=== PATIENT | male | born 1985 | race Caucasian/White ===

== ENCOUNTER 2016-09-28 12:30 | Inpatient (IN) | payer OTHER ==
--- NOTE | ~2016-09-28 | DS ---
Discharge Summary [address] [place]. [address] NAME: DARCY FUNES : 89 STATUS : ADM IN LOCATED WITHIN [facility]#: [id number] AGE: 31 ADM/REG DATE : 09/28/16 MR#: [id number] REPORT SERV DATE: 10/01/16 DICTATED BY: PB JENKINS DATE: 09/30/16 REPORT STATUS : Draft TRANSCRIBED BY: MODL DATE: 09/30/16 ADMISSION DATE: 09/28/2016 DISCHARGE DATE: 09/30/2016 DISCHARGE DIAGNOSES: 1. Schizoaffective disorder. 2. Mild gastritis, resolved. HOSPITAL COURSE: The patient was admitted to the ER on 09/28/2016, had a psychotic break, required intubation and mechanical ventilation, and sedation for control. He is weaned off the ventilator on 09/30/2016. He was seen by Psychiatry, who continued on Haldol and Ativan. Schizoaffective disorder, diagnosed bipolar disease, opioid dependence, and borderline mental retardation. The patient has had a previous brain injury. CT scan revealed no acute issues. His electrolyte and vital signs were stable today. Sodium 146, potassium 3.6, chloride 113, CO2 of 22, BUN 7, creatinine 0.44, H and H of 11.3 and 32.7, white count 7900. PLAN: Transfer to [facility] for further treatment. JEET/REGGIE Pb Jenkins M.D. / [id number] CC: Pb Jenkins M.D.
--- NOTE | ~2016-09-28 | HP ---
History And Physical [address] [address] NAME: DARCY FUNES : 89 STATUS : ADM IN [facility]#: [id number] AGE: 31 ADM/REG DATE : 09/28/16 MR#: [id number] REPORT SERV DATE: 09/29/16 DICTATED BY: PB JENKINS DATE: 09/28/16 REPORT STATUS : Draft TRANSCRIBED BY: MODL DATE: 09/28/16 DATE OF ADMISSION: 09/28/2016 TIME: 2146 hours. LOCATION: Seen at ER bed #4. HISTORY OF PRESENT ILLNESS: A 31-year-old white male recently discharged from [facility] 2 days ago after being undergoing weaning off methadone for a previous opioid habit. He was home for about a day and a half to two days his father reports when he began to have paranoid ideation, felt that people were chasing him, became more and more agitated, and was brought to the ER where he had what I think is a total psychotic break. He required intubation and paralysis by the ER physician along with sedation. This was after a number of different agents had been tried to help him prior to that. According to his family's history, in , he had similar overdoses with anoxic brain injury documented at that time. As a child he had a head injury at the age 2-1/2. PAST MEDICAL HISTORY: Significant for usual childhood diseases, history of the accident as noted above, history of anoxic injury as noted above. No operations in the past. Significant opioid addiction in the past. REVIEW OF SYSTEMS: GI: Negative. : Negative. CARDIAC: Negative. MUSCULOSKELETAL: Negative. NEUROLOGIC: Noted. ENDOCRINE: Negative. ALLERGIES: NO KNOWN ALLERGIES. MEDICATIONS: No medicines other than methadone. PHYSICAL EXAMINATION: VITAL SIGNS: On examination, his blood pressure is about 132/88, pulse 101 to 120, respirations 22, and temperature 98.3. HEENT: Head is normocephalic. Sclerae and conjunctivae clear. NECK: Supple. CHEST: Clear to auscultation and percussion. No wheezing or rhonchi. CARDIAC: S1 and S2. No murmurs or gallops. ABDOMEN: Soft and nontender. No masses or organomegaly. EXTREMITIES: No clubbing, cyanosis, or edema. Pulses palpable. A number of tattoos, especially above the groin and shoulder. NEUROLOGIC: Pupils appear to be equal and reactive. LABORATORY DATA: Shows the following: Sodium 141, potassium 3.0, chloride 107, CO2 of 25, BUN 13, creatinine 1.0, glucose 122, calcium 9.3, total protein 8.4, albumin 4.7, total bilirubin 0.7, alkaline phosphatase 96, ALT 38, AST 10 troponin less than 0.02. CPK is pending. Acetaminophen less than 2. Salicylate less than 1.7. Alcohol less than 10. CBC shows a hemoglobin and hematocrit of 14.2 and 40.2, white count 8600, and platelet count History And Physical [address] [address] NAME: DARCY FUNES : 89 STATUS : ADM IN [facility]#: [id number] AGE: 31 ADM/REG DATE : 09/28/16 MR#: [id number] REPORT SERV DATE: 09/29/16 DICTATED BY: PB JENKINS DATE: 09/28/16 REPORT STATUS : Draft TRANSCRIBED BY: REGGIE DATE: 09/28/16 320,000. PTT 25.9, INR 1.2. Urinalysis normal except for 30 mg of protein. Ascorbic acid of 40. Urine drug screen positive for cannabinoids. Negative for PCP, benzos, cocaine, amphetamines, opiates, barbiturates, and tricyclics. Chest x-ray, no acute cardiopulmonary disease. EKG, sinus tach with nonspecific ST abnormality. No evidence of QT prolongation. JEET/REGGIE Pb Jenkins M.D. / [id number] CC: Pb Jenkins M.D.
--- NOTE | ~2016-09-28 | CN ---
Consultation Report [facility] [address] [place]. [address] NAME: DARCY FUNES : 89 STATUS : ADM IN [facility]#: [id number] AGE: 31 ADM/REG DATE : 09/28/16 MR#: [id number] REPORT SERV DATE: 09/29/16 DICTATED BY: PRIMO LORENZO DATE: 09/29/16 REPORT STATUS : Draft TRANSCRIBED BY: MODL DATE: 09/29/16 CARDIOLOGY CONSULTATION NOTE DATE OF CONSULTATION: 09/29/2016 CHIEF COMPLAINT: Unknown. REASON FOR CONSULTATION: Possible cardiac problems. SOURCE: The patient's chart. The patient unable to provide any history. HISTORY OF PRESENT ILLNESS: Mr. Funes is a 31-year-old, white man with a history of opioid addiction. Reportedly, undergoing opioid withdrawal, becoming more paranoid and agitated. He came to the ER and was thought to have a total psychotic break. He required sedation, intubation, and paralysis. He is currently in the ICU, sedated, paralyzed, and intubated, unable to provide any history. Nurse reports that he has not had any rhythm disturbances or hemodynamic instability. We were asked to see him in consultation. REVIEW OF SYSTEMS: Unobtainable. ALLERGIES: NO KNOWN DRUG ALLERGIES. MEDICATIONS: At home, none. In the hospital: Colace, Lovenox, Pepcid, folic acid, melatonin, and vitamins. PAST MEDICAL HISTORY: Per his history and physical, included usual childhood diseases. He had an anoxic brain injury, head injury at the age of 2-1/2. SOCIAL HISTORY: The patient had recently been discharged from [facility] [place] two days prior to admission after being undergoing weaning off methadone for opioid habit. Otherwise, unknown. FAMILY HISTORY: Unknown. PHYSICAL EXAMINATION: GENERAL: He is a well-developed, well-nourished, middle-aged white man, in no acute distress. Sedated, paralyzed, intubated OG tube. HEENT: Sclerae anicteric. Carotids 2+ and symmetrical. Conjunctivae pink. Lips without cyanosis. LUNGS: Clear to auscultation anteriorly. No use of accessory muscles. HEART: Regular rate and rhythm. Without murmur, gallop, or rub. ABDOMEN: Positive bowel sounds. Soft, nontender. EXTREMITIES: Pulses 2+ and symmetrical. No cyanosis, clubbing, or edema. Consultation Report [facility] [address] [place]. [address] NAME: DARCY FUNES : 89 STATUS : ADM IN PAT#: [id number] AGE: 31 ADM/REG DATE : 09/28/16 MR#: [id number] REPORT SERV DATE: 09/29/16 DICTATED BY: PRIMO LORENZO DATE: 09/29/16 REPORT STATUS : Draft TRANSCRIBED BY: REGGIE DATE: 09/29/16 BACK: No CVA tenderness. MUSCULOSKELETAL: Diminished tone. NEURO: Sedated and paralyzed. VITAL SIGNS: The blood pressure is 132/57, pulse 118, temperature 99.9, weight is 74 kg, height is 5 feet 7 inches. LABORATORY EXAMINATION: The telemetry reveals sinus tachycardia. EKG, sinus tachycardia, nonspecific ST changes. Chest x-ray, endotracheal tube 3-4 cm above the jere. Otherwise no acute cardiopulmonary abnormality. KUB, NG tube, no evidence of acute abnormality. Sodium 146, potassium 2.9, chloride 111, CO2 of 30, glucose 100, BUN 10, creatinine 0.81, lactate 1.5. White count 8.5, hemoglobin 12.7, hematocrit 36.8, platelets 240,000. Blood gas; pH 7.45, pCO2 of 36, PO2 of 212, oxygen saturation 99% on 40% oxygen CMV. Procalcitonin less than 0.05. TSH 1.43, free T4 of 1.69. Acetaminophen, alcohol, and salicylate levels were all negative. CPK 79. Troponin of less than 0.02. Drug screen, urine is positive for cannabinoids. IMPRESSION: 1. Sedated and paralyzed for a reported psychotic break. 2. Intubated for airway protection. 3. Reported opioid addiction and withdrawal. 4. History of anoxic brain injury and head trauma. 5. Nonspecific ST depression on EKG. 6. Remains in sinus rhythm with negative cardiac enzymes. Hemodynamically stable. RECOMMENDATIONS: 1. Repeat a 12-lead EKG. 2. Transthoracic echocardiogram. 3. Further recommendations following the above. NOE/REGGIE Primo Lorenzo M.D. / [id number] CC: Jeramy Jenkins M.D.
--- NOTE | ~2016-09-28 | EHP ---
ER History and Physical [address] [place]. [address] NAME: DARCY FUNES : 89 STATUS : ADM IN [facility]#: [id number] AGE: 31 ADM/REG DATE : 09/28/16 MR#: [id number] REPORT SERV DATE: 09/29/16 DICTATED BY: ALEX FONTANA DATE: 09/28/16 REPORT STATUS : Draft TRANSCRIBED BY: REGGIE DATE: 09/28/16 CHIEF COMPLAINT: Psychosis. HISTORY OF PRESENT ILLNESS: The patient was seen here and evaluated by midlevel on day shift today and had been relatively calm. He was recently withdrawn from methadone and had a recent admission to [facility]. He became acutely psychotic here necessitating my intervention. We gave multiple rounds of medications trying to calm the patient, he was maxed out on Geodon, received Haldol, received multiple other medications. The patient was put into the seclusion room secondary to the patient's agitation and aggression with staff and fear, that he may harm himself or harm staff. During his time there, he was obviously severely altered and continually wandering about the room banging his head into the nelson and on observation of this, the patient seemed to be a threat to himself. We attempted to give more medications and calm the patient but despite our efforts the patient continued to became aggressive to the staff, was combative, we were unable to calm the patient so the patient ultimately ended up needing to be intubated and sedated secondary to his extreme agitation. I was concerned about the patient's behavior. His severe psychosis and severe agitations would be a threat to himself as well as the staff here given the fact that I observed him actually harming himself in the room. Dr. Jenkins of Critical Care Services is actually in the room, visualized the patient's aggressive behavior and agitation and agreed with intubation. The patient was intubated. See the paper chart for full details of the intubation procedure. Please document 40 minutes of critical care time and direct stabilization evaluation as well as discussion with the admitting physician of the patient's family at the bedside outside of any billable procedures. MARYCRUZ Alex Fontana DO / [id number] CC: Jeramy Jenkins M.D.
--- NOTE | ~2016-09-28 | CN ---
Consultation Report [facility] [address] [place]. [address] NAME: DARCY FUNES : 89 STATUS : ADM IN PAT#: [id number] AGE: 31 ADM/REG DATE : 09/28/16 MR#: [id number] REPORT SERV DATE: 09/29/16 DICTATED BY: MELECIO CHRISTIAN DATE: 09/29/16 REPORT STATUS : Draft TRANSCRIBED BY: REGGIE DATE: 09/29/16 PSYCHIATRIC CONSULTATION DATE OF CONSULTATION: 09/29/2016 I reviewed this patient's medical record. I discussed the patient's history with his mother. I discussed the patient's status with his nurse. HISTORY OF PRESENT ILLNESS: He was admitted with acute agitation and paranoid delusions. He was eventually sedated and intubated for his own protection. His mother reported that just prior to this admission, he was delusional about the devil confining him to bed. He thought his mother was killing babies and cooking them on the stove. He had multiple other delusions. 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 His mother said that his IQ was judged to be low and probably was borderline. He was always a very fearful child. He was unable to tolerate large gatherings of students at the school. Over the years, he has had bouts of severe depression when he would stay in bed for days at a time. During one episode of depression, he refused to leave the house for about six months. At other times, he had bouts of extreme hyperactivity or frenzied activity. His mother described changing his clothes about 25 times in a period of two hours. He was almost always paranoid about people wanting to attack or hurt him. He had opioid abuse and dependence for about four to five years. He overdosed in 2011, when according to the mother, he apparently coded and was revived. About three weeks ago, he was admitted to [facility] because of increasing paranoia. He was discharged after one day. He was readmitted one week later and stayed there for about four or five days. After that discharge, he was stable for about four days before his delusions and agitation returned. At the time of admission, his urine drug screen was negative for opioids and it was positive for marijuana. SOCIAL HISTORY: He never held a job. He lives with his mother and a disabled sister who has cerebral palsy. FAMILY HISTORY: Bipolar disorder in his maternal grandfather and a maternal uncle. His father suffered from a breakdown and had an admission to [facility]. A paternal uncle has been diagnosed with paranoid schizophrenia. MENTAL STATUS: Sedated and intubated at this time. DIAGNOSES: 1. Probable schizoaffective disorder, bipolar type. 2. Opioid dependence in short-term remission. 3. Probable borderline mental retardation. RECOMMENDATIONS: I will follow during this admission. I will request a copy of records from Consultation Report [address] [address] NAME: DARCY FUNES : 89 STATUS : ADM IN [facility]#: [id number] AGE: 31 ADM/REG DATE : 09/28/16 MR#: [id number] REPORT SERV DATE: 09/29/16 DICTATED BY: MELECIO CHRISTIAN DATE: 09/29/16 REPORT STATUS : Draft TRANSCRIBED BY: REGGIE DATE: 09/29/16 [facility]. LEVI/REGGIE Melecio Christian M.D. / [id number] CC: Jeramy Jenkins M.D.
--- NOTE | ~2016-09-28 | DS ---
Discharge Summary [address] [place]. [address] NAME: DARCY LUCIA : 89 STATUS : DIS IN PAT#: [id number] AGE: 31 ADM/REG DATE : 09/28/16 MR#: [id number] REPORT SERV DATE: 10/02/16 DICTATED BY: PB JENKINS DATE: 10/01/16 REPORT STATUS : Draft TRANSCRIBED BY: MODL DATE: 10/01/16 ADMISSION DATE: 09/28/2016 DISCHARGE DATE: 10/01/2016 ADDENDUM: Mr. Lucia's discharge was delayed by one day because [facility] did not have an available bed. His vital signs remained stable. He is afebrile. Physical exam is within normal limits. He did have more of an anxiety episode today and required some medications. His MAR has been signed. He is ready for discharge and transfer to [facility]. JEET/REGGIE Pb Jenkins M.D. / [id number] CC: Pb Jenkins M.D.
[2016-09-28 13:25] LABS: BASOPHILS 0.2 %; BASOPHILS ABSOLUTE 0.02 10/3/uL (0.0-0.16); EOSINOPHILS 0.1 %; EOSINOPHILS ABSOLUTE 0.01 10/3/uL (0.0-0.53); ER CBC TAT 0 Hrs 08 Mins; IMMATURE GRANULOCYTES 0.2 %; IMMATURE GRANULOCYTES ABSOLUTE 0.02 10/3/uL (0.0-0.11); LYMPHOCYTES ABSOLUTE 1.88 10/3/uL (0.67-4.30); MEAN CORPUSCULAR HEMOGLOB 30.3 pg (26.0-34.0); MEAN CORPUSCULAR VOLUME 85.9 fL (80-100); MEAN PLATELET VOLUME 10.5 fL (9.2-13.0); MONOCYTES 9.2 %; MONOCYTES ABSOLUTE 0.79 10/3/uL (0.21-1.20); NEUTROPHILS 68.3 %; NEUTROPHILS ABSOLUTE 5.84 10/3/uL (2.02-8.40); PLATELET COUNT 320 10/3/uL (150-400); RBC DISTRIBUTION WIDTH 13.7 % (12.0-16.0); WHITE BLOOD CELLS 8.6 10/3/uL (4.5-10.5)
[2016-09-28 13:26] LABS: HEMATOCRIT 40.2 % (40.0-51.0); HEMOGLOBIN 14.2 g/dL (13.6-17.8); MANUAL DIFF NO %; MEAN CORPUS HGB CONC 35.3 g/dL (32.0-36.0); RED CELL COUNT 4.68 10/6/uL (4.7-6.1)
[2016-09-28 13:38] LABS: INTERNATIONAL NORMAL RATI 1.2 UNITS (-); PARTIAL THROMBO TIME 25.9 SEC (22.5-37.2); PROTIME (NOT ORD) 15.3 SEC (12.0-14.5)
[2016-09-28 13:42] LABS: A/G RATIO 1.3 (0.7-1.9); ACETAMINOPHEN LEVEL (TYLENOL) < 2.0 MCG/ML (10.0-20.0); ALBUMIN 4.7 G/DL (3.5-5.0); ALCOHOL < 10 MG/DL (0); ALKALINE PHOSPHATASE 96 U/L (45-117); BUN (BLOOD UREA NITROGEN) 13 MG/DL (6-23); CALCIUM, SERUM 9.3 MG/DL (8.5-10.4); CHLORIDE, SERUM 107 MMOL/L (96-112); CO2 (CARBON DIOXIDE) 25 MMOL/L (24-34); GFR AFRICAN AMERICAN 117 ML/MIN (>=60); GFR NON AFRICAN AMERICAN 101 ML/MIN (>=60); GLOBULIN 3.7 G/DL (2.5-4.1); GLUCOSE, SERUM 122 MG/DL (60-99); SALICYLATE < 1.7 MG/DL (-); SGOT(AST) 10 U/L (5-40); SGPT(ALT) 38 U/L (5-65); SODIUM, SERUM 141 MMOL/L (135-148); TOTAL BILIRUBIN 0.7 MG/DL (0-1.2); TOTAL PROTEIN 8.4 G/DL (6.0-8.5); TROPONIN I <0.02 NG/ML (<0.05)
[2016-09-28 14:25] LABS: ASCORBIC ACID (UR NOT ORDER) 40 (NEG); BILIRUBIN, URINE NEGATIVE (NEG); ER URINALYSIS TAT 0 Hrs 10 Mins; KETONE, URINE 20 MG/DL (NEG); LEUKOCYTE ESTERASE(NOT OR NEG (NEG); NITRITE (URINE) NEG (NEG); WBC (NOT ORDERED) (RFLEX) 1 (0-5)
[2016-09-28 14:42] LABS: AMPHETAMINES (NOT ORD) NEG (NEG); BENZODIAZEPINES (NOT ORD) NEG (NEG); CANNABINOIDS (THC) POS (NEG); COCAINE (NOT ORDERED) NEG (NEG); OPIATES NEG (NEG); PHENCYCLIDINE(PCP) NEG (NEG)
[2016-09-28 14:43] LABS: BARBITURATES (NOT ORDERED NEG (NEG); TRICYCLICS NEG (NEG)
[2016-09-28] MEDS ORDERED: *DENIES (18:01)
[2016-09-28 21:54] LABS: BE (BASE EXCESS) -0.6 MEQ/L (0 +/- 2.5); CARBOXYHEMOGLOBIN 0.8 % (0-3); HEMOBLOGIN CONTENT 12.9 G/DL (14-18); INSTRUMENT SERIAL # 8087; METHEMOGLOBIN 0.2 % (0-3); MODE SIMV; O2 CONTENT 18.5 VOL% (18-24); PCO2 (CO2 TENSION) 39 MMHG (35-45); PO2 (O2 TENSION) 268 MMHG (79-93); SAMPLE Arterial; TIDAL VOLUME 500 ML
[2016-09-28 21:55] LABS: CPK (IF ELEVATED MB BANDS) 79 U/L (0-200)
[2016-09-29 00:42] LABS: ACETAMINOPHEN LEVEL (TYLENOL) < 2.0 MCG/ML (10.0-20.0); ALCOHOL < 10 MG/DL (0); FREE T4 1.69 NG/DL (0.76-1.46); SALICYLATE < 1.7 MG/DL (-)
[2016-09-29 01:20] LABS: PROCALCITONIN <0.05 ng/mL (<0.5)
[2016-09-29 03:15] LABS: BE (BASE EXCESS) 0.6 MEQ/L (0 +/- 2.5); CARBOXYHEMOGLOBIN 0.3 % (0-3); HCO3 (ACTUAL BICARBONATE) 24.2 MEQ/L (23-27); HEMOBLOGIN CONTENT 12.7 G/DL (14-18); INSTRUMENT SERIAL # 35151; METHEMOGLOBIN 0.6 % (0-3); MODE CMV; OPERATOR ID 17370; PCO2 (CO2 TENSION) 36 MMHG (35-45); PO2 (O2 TENSION) 212 MMHG (79-93); SAMPLE Arterial; TIDAL VOLUME 500 ML; pH 7.45 (7.37-7.43)
[2016-09-29 04:15] LABS: BASOPHILS 0.4 %; BASOPHILS ABSOLUTE 0.03 10/3/uL (0.0-0.16); EOSINOPHILS 1.4 %; EOSINOPHILS ABSOLUTE 0.12 10/3/uL (0.0-0.53); HEMATOCRIT 36.8 % (40.0-51.0); HEMOGLOBIN 12.7 g/dL (13.6-17.8); IMMATURE GRANULOCYTES 0.2 %; IMMATURE GRANULOCYTES ABSOLUTE 0.02 10/3/uL (0.0-0.11); LYMPHOCYTES 30.9 %; LYMPHOCYTES ABSOLUTE 2.62 10/3/uL (0.67-4.30); MEAN CORPUS HGB CONC 34.5 g/dL (32.0-36.0); MEAN CORPUSCULAR HEMOGLOB 29.9 pg (26.0-34.0); MEAN CORPUSCULAR VOLUME 86.6 fL (80-100); MEAN PLATELET VOLUME 10.9 fL (9.2-13.0); MONOCYTES 10.1 %; MONOCYTES ABSOLUTE 0.86 10/3/uL (0.21-1.20); NEUTROPHILS ABSOLUTE 4.84 10/3/uL (2.02-8.40); PLATELET COUNT 240 10/3/uL (150-400); RBC DISTRIBUTION WIDTH 14.4 % (12.0-16.0); RED CELL COUNT 4.25 10/6/uL (4.7-6.1); WHITE BLOOD CELLS 8.5 10/3/uL (4.5-10.5)
[2016-09-29 04:23] LABS: MANUAL DIFF NO %
[2016-09-29 04:38] LABS: ALBUMIN 4.1 G/DL (3.5-5.0); BUN (BLOOD UREA NITROGEN) 10 MG/DL (6-23); CHLORIDE, SERUM 111 MMOL/L (96-112); CREATININE 0.81 MG/DL (0.70-1.30); GFR AFRICAN AMERICAN 139 ML/MIN (>=60); GFR NON AFRICAN AMERICAN 120 ML/MIN (>=60); GLUCOSE, SERUM 100 MG/DL (60-99); SGOT(AST) 14 U/L (5-40); SGPT(ALT) 30 U/L (5-65); SODIUM, SERUM 146 MMOL/L (135-148); TOTAL BILIRUBIN 0.7 MG/DL (0-1.2); TOTAL PROTEIN 6.9 G/DL (6.0-8.5)
[2016-09-29 04:42] LABS: A/G RATIO 1.5 (0.7-1.9); ALKALINE PHOSPHATASE 77 U/L (45-117); CO2 (CARBON DIOXIDE) 30 MMOL/L (24-34); GLOBULIN 2.8 G/DL (2.5-4.1); POTASSIUM, SERUM 2.9 MMOL/L (3.5-5.3)
[2016-09-29 18:41] LABS: CPK 196 U/L (0-200)
[2016-09-29 18:42] LABS: CK-MB 1.5 NG/ML
[2016-09-30 05:04] LABS: BASOPHILS 0.5 %; BASOPHILS ABSOLUTE 0.04 10/3/uL (0.0-0.16); EOSINOPHILS 4.6 %; EOSINOPHILS ABSOLUTE 0.36 10/3/uL (0.0-0.53); HEMOGLOBIN 11.3 g/dL (13.6-17.8); IMMATURE GRANULOCYTES 0.3 %; IMMATURE GRANULOCYTES ABSOLUTE 0.02 10/3/uL (0.0-0.11); LYMPHOCYTES 24.2 %; LYMPHOCYTES ABSOLUTE 1.91 10/3/uL (0.67-4.30); MEAN CORPUS HGB CONC 34.6 g/dL (32.0-36.0); MEAN CORPUSCULAR HEMOGLOB 30.1 pg (26.0-34.0); MEAN CORPUSCULAR VOLUME 87.2 fL (80-100); MEAN PLATELET VOLUME 10.5 fL (9.2-13.0); MONOCYTES 9.6 %; MONOCYTES ABSOLUTE 0.76 10/3/uL (0.21-1.20); NEUTROPHILS 60.8 %; NEUTROPHILS ABSOLUTE 4.79 10/3/uL (2.02-8.40); PLATELET COUNT 189 10/3/uL (150-400); RBC DISTRIBUTION WIDTH 14.5 % (12.0-16.0); RED CELL COUNT 3.75 10/6/uL (4.7-6.1); WHITE BLOOD CELLS 7.9 10/3/uL (4.5-10.5)
[2016-09-30 05:08] LABS: HEMATOCRIT 32.7 % (40.0-51.0); MANUAL DIFF NO %
[2016-09-30 05:17] LABS: BUN (BLOOD UREA NITROGEN) 7 MG/DL (6-23); CALCIUM, SERUM 8.6 MG/DL (8.5-10.4); CHLORIDE, SERUM 113 MMOL/L (96-112); CREATININE 0.74 MG/DL (0.70-1.30); GFR AFRICAN AMERICAN 144 ML/MIN (>=60); GFR NON AFRICAN AMERICAN 125 ML/MIN (>=60); GLUCOSE, SERUM 100 MG/DL (60-99); POTASSIUM, SERUM 3.6 MMOL/L (3.5-5.3); SODIUM, SERUM 146 MMOL/L (135-148)
[2016-09-30 05:26] LABS: CO2 (CARBON DIOXIDE) 22 MMOL/L (24-34)
[2016-10-01 04:50] LABS: BASOPHILS 0.5 %; BASOPHILS ABSOLUTE 0.03 10/3/uL (0.0-0.16); EOSINOPHILS 7.2 %; EOSINOPHILS ABSOLUTE 0.45 10/3/uL (0.0-0.53); HEMATOCRIT 32.1 % (40.0-51.0); HEMOGLOBIN 11.3 g/dL (13.6-17.8); IMMATURE GRANULOCYTES 0.2 %; IMMATURE GRANULOCYTES ABSOLUTE 0.01 10/3/uL (0.0-0.11); LYMPHOCYTES ABSOLUTE 1.74 10/3/uL (0.67-4.30); MEAN CORPUS HGB CONC 35.2 g/dL (32.0-36.0); MEAN CORPUSCULAR HEMOGLOB 30.4 pg (26.0-34.0); MEAN CORPUSCULAR VOLUME 86.3 fL (80-100); MEAN PLATELET VOLUME 10.3 fL (9.2-13.0); MONOCYTES 7.4 %; MONOCYTES ABSOLUTE 0.46 10/3/uL (0.21-1.20); NEUTROPHILS 56.7 %; NEUTROPHILS ABSOLUTE 3.53 10/3/uL (2.02-8.40); PLATELET COUNT 189 10/3/uL (150-400); RBC DISTRIBUTION WIDTH 13.8 % (12.0-16.0); RED CELL COUNT 3.72 10/6/uL (4.7-6.1); WHITE BLOOD CELLS 6.2 10/3/uL (4.5-10.5)
[2016-10-01 04:56] LABS: MANUAL DIFF NO %
[2016-10-01 05:06] LABS: BUN (BLOOD UREA NITROGEN) 4 MG/DL (6-23); CALCIUM, SERUM 8.3 MG/DL (8.5-10.4); CHLORIDE, SERUM 111 MMOL/L (96-112); CO2 (CARBON DIOXIDE) 25 MMOL/L (24-34); CREATININE 0.62 MG/DL (0.70-1.30); GFR AFRICAN AMERICAN 155 ML/MIN (>=60); GFR NON AFRICAN AMERICAN 134 ML/MIN (>=60); POTASSIUM, SERUM 3.2 MMOL/L (3.5-5.3); SODIUM, SERUM 146 MMOL/L (135-148)
[2016-10-01 05:24] LABS: GLUCOSE, SERUM 138 MG/DL (60-99)
[2016-10-01 12:03] LABS: POTASSIUM, SERUM 3.4 MMOL/L (3.5-5.3)
[2016-10-02 03:16] LABS: BASOPHILS 0.2 %; BASOPHILS ABSOLUTE 0.02 10/3/uL (0.0-0.16); EOSINOPHILS 0.4 %; EOSINOPHILS ABSOLUTE 0.03 10/3/uL (0.0-0.53); HEMATOCRIT 35.3 % (40.0-51.0); HEMOGLOBIN 12.3 g/dL (13.6-17.8); IMMATURE GRANULOCYTES 0.1 %; IMMATURE GRANULOCYTES ABSOLUTE 0.01 10/3/uL (0.0-0.11); LYMPHOCYTES 9.6 %; LYMPHOCYTES ABSOLUTE 0.77 10/3/uL (0.67-4.30); MEAN CORPUS HGB CONC 34.8 g/dL (32.0-36.0); MEAN CORPUSCULAR HEMOGLOB 30.2 pg (26.0-34.0); MEAN CORPUSCULAR VOLUME 86.7 fL (80-100); MEAN PLATELET VOLUME 10.8 fL (9.2-13.0); MONOCYTES 3.1 %; MONOCYTES ABSOLUTE 0.25 10/3/uL (0.21-1.20); NEUTROPHILS 86.6 %; NEUTROPHILS ABSOLUTE 6.95 10/3/uL (2.02-8.40); PLATELET COUNT 221 10/3/uL (150-400); RBC DISTRIBUTION WIDTH 14.5 % (12.0-16.0); RED CELL COUNT 4.07 10/6/uL (4.7-6.1)
[2016-10-02 03:17] LABS: MANUAL DIFF NO %
[2016-10-02 03:26] LABS: BUN (BLOOD UREA NITROGEN) 4 MG/DL (6-23); CALCIUM, SERUM 8.8 MG/DL (8.5-10.4); CHLORIDE, SERUM 109 MMOL/L (96-112); CO2 (CARBON DIOXIDE) 25 MMOL/L (24-34); CREATININE 0.72 MG/DL (0.70-1.30); GFR AFRICAN AMERICAN 146 ML/MIN (>=60); GFR NON AFRICAN AMERICAN 126 ML/MIN (>=60); GLUCOSE, SERUM 131 MG/DL (60-99); PHOSPHORUS, SERUM 2.1 MG/DL (2.5-4.5); POTASSIUM, SERUM 3.7 MMOL/L (3.5-5.3); SODIUM, SERUM 145 MMOL/L (135-148)
== END 2016-10-02 13:25 | DRG 885 ==
LOC: ER 12:30 → CCU 21:10
PROVIDERS: Internal Medicine Critical Care Medicine; Nurse Practitioner Family
PROC: 5A1945Z Respiratory Ventilation, 24-96 Consecutive Hours (ICD-10-PCS; principal; 2016-09-28)
PROC: 0BH17EZ Insertion of Endotracheal Airway into Trachea, Via Natural or Artificial Opening (ICD-10-PCS; 2016-09-28)
PROC: 02HV33Z Insertion of Infusion Device into Superior Vena Cava, Percutaneous Approach (ICD-10-PCS; 2016-09-29)
PROC: 4A02X4A Measurement of Cardiac Electrical Activity, Guidance, External Approach (ICD-10-PCS; 2016-09-29)
DX: F25.0 Schizoaffective disorder, bipolar type (principal); F11.20 Opioid dependence, uncomplicated; F79 Unspecified intellectual disabilities; F48.8 Other specified nonpsychotic mental disorders; R00.0 Tachycardia, unspecified; K29.70 Gastritis, unspecified, without bleeding; Z87.820 Personal history of traumatic brain injury
CPT/HCPCS: 31500; 31720; 36569; 36600; 70450; 71010; 74000; 80048; 80053; 80305; 80307; 81001; 82271; 82533; 82550; 82553; 82728; 82805; 83540; 83550; 83605; 83735; 84100; 84132; 84145; 84439; 84443; 84484; 85025; 85610; 85730; 87040; 87641; 93005; 94002; 94003; 94660; 94770; 96372; 96374; 96375; 96376; 99285; A9270-GY; C1751; C8929; C9113; J0330; J1630; J2405; J2550; J3010; J3411; J3475; J3486; Q9957